=== PATIENT | male | born 1965 | race American Indian/Alaskan Native ===

== ENCOUNTER 2017-04-12 14:28 | Outpatient (CLI) | payer MEDICARE ==
--- NOTE | 2017-04-12 15:50 | XRay Report ---
LEFT ELBOW, 3 views: History: Left elbow pain. The bony architecture is intact without evidence of fracture or dislocation. No significant soft tissue abnormality is seen. IMPRESSION: Normal left elbow.
--- NOTE | 2017-04-12 15:59 | XRay Report ---
RIGHT KNEE RADIOGRAPHS INDICATION: Knee pain. COMPARISON: None similar at this institution. FINDINGS: AP, lateral and oblique right knee radiographs demonstrate intact articulation. Mild proximal tibial degenerative spurring. A proximal tibial metaphyseal long horizontal threaded screw noted as also small 4 mm BB like density in the distal thigh anteromedially. Couple of proximal tibial iatrogenic/hardware related lucencies also incidentally seen. Possible osteopenia. No suprapatellar effusion. Mild prepatellar soft tissue prominence/thickening may though be present. CONCLUSION: 1. No acute right knee bony abnormality, though mild degenerative changes noted. Mild prepatellar soft tissue swelling also questioned. 2. Few other iatrogenic/posttraumatic changes, as described. Thank you for the opportunity to participate in this patient's care.
--- NOTE | 2017-04-12 16:03 | XRay Report ---
LUMBAR SPINE RADIOGRAPHS INDICATION: Lumbar pain. COMPARISON: None similar. FINDINGS: AP, lateral and oblique lumbar spine radiographs demonstrate normal vertebral body stature. Lower lumbar degenerative spurring, greatest at L5-S1 with moderate to severe disc narrowing at this level as well. No evidence of a pars defect. Clear visualized lung bases. Intact SI joints. Nonobstructive bowel gas pattern. Left groin hernia repair erin. CONCLUSION: 1. Lower lumbar degenerative changes, greatest at L5-S1, as described. 2. Other findings, including left groin hernia repair. Thank you for the opportunity to participate in this patient's care.
--- NOTE | 2017-04-12 16:04 | XRay Report ---
THORACIC SPINE RADIOGRAPHS INDICATION: Thoracic spine pain. COMPARISON: None similar. FINDINGS: AP, lateral and swimmer's view to evaluate thoracic spine demonstrate preserved vertebral body stature and alignment. Mild multilevel thoracic spine degenerative spurring. Grossly normal disc heights. Symmetric pedicles. Intact costovertebral articulations. No abnormal paraspinal density. Normal imaged heart. Clear visualized lungs. CONCLUSION: Mild thoracic spondylosis, as described. Thank you for the opportunity to participate in this patient's care.
--- NOTE | 2017-04-12 16:09 | XRay Report ---
CERVICAL SPINE RADIOGRAPHS INDICATION: Cervicalgia. COMPARISON: None similar. FINDINGS: AP, lateral, open mouth and oblique cervical spine radiographs demonstrate normal imaged dens with symmetric lateral masses, though in part obscured due to overlying skull. Intact craniocervical articulation on the lateral view with normal predental space, prevertebral soft tissues and airway. Adequate visualization upto T1. Normal alignment. C5-C7 degenerative spurring. Moderate C5-C6 and C6-C7 disc narrowing as well. Corresponding neural foraminal narrowing also suspected. Clear visualized lung apices. CONCLUSION: Cervical spine degenerative changes noted from C5 inferiorly, as described. Thank you for the opportunity to participate in this patient's care.
== END 2017-04-12 14:29 | disposition home or self-care (01) ==
LOC: XRAY 14:28
PROVIDERS: ATTEND Internal Medicine
DX: M47.892 Other spondylosis, cervical region (principal); M47.894 Other spondylosis, thoracic region; K46.9 Unspecified abdominal hernia without obstruction or gangrene; M25.562 Pain in left knee; M25.521 Pain in right elbow; M25.522 Pain in left elbow; M47.897 Other spondylosis, lumbosacral region; M25.461 Effusion, right knee; F17.200 Nicotine dependence, unspecified, uncomplicated; I10 Essential (primary) hypertension
CPT/HCPCS: 72050; 72070; 72110

== ENCOUNTER 2017-07-13 15:56 | Emergency (ER) | payer OTHER, MEDICARE ==
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
[2017-07-13] MEDS ORDERED: MOTRIN PO ONE (21:53)
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
[2017-07-13 22:50] VITALS: BP 149/82
== END 2017-07-13 22:50 | disposition home or self-care (01) ==
LOC: ED 15:56
DX: S39.012A Strain of muscle, fascia and tendon of lower back, initial encounter (principal); S13.4XXA Sprain of ligaments of cervical spine, initial encounter; S29.019A Strain of muscle and tendon of unspecified wall of thorax, initial encounter; I10 Essential (primary) hypertension; E78.00 Pure hypercholesterolemia, unspecified; F17.200 Nicotine dependence, unspecified, uncomplicated; V49.49XA Driver injured in collision with other motor vehicles in traffic accident, initial encounter; Y92.488 Other paved roadways as the place of occurrence of the external cause; Y93.89 Activity, other specified; Y99.8 Other external cause status
CPT/HCPCS: 72070; 72100; 72125